=== PATIENT | female | born 2005 | race Caucasian/White ===

== ENCOUNTER 2024-03-16 08:36 | Emergency (ER) | payer MEDICAID ==
[~2024-03-16] VITALS: Ht 157.5 cm; Wt 68.2 kg
[2024-03-16 08:53] VITALS: TEMP 98.7
[2024-03-16] MEDS: OXYTOCIN 20 UNITS in DEXTROSE 5%-LACTATED RINGERS 1,000 ML IV ONE ×2 (08:59)
[2024-03-16 09:58] VITALS: BP 116/69; PULSE 78; RESP 15; O2SAT 99
== END 2024-03-16 15:32 | disposition short-term general hospital (02) ==
LOC: EMS 08:36
DX: O60.12X0 Preterm labor second trimester with preterm delivery second trimester, not applicable or unspecified (principal)
CPT/HCPCS: 99285; 96365; J7070; J2590